=== PATIENT | male | born 1950 | race Two or more races ===

== ENCOUNTER → 2024-01-18 | Outpatient (CLI) | payer MEDICAID | END | disposition home or self-care (01) | LOC: LAB 13:36 | PROVIDERS: ATTEND Family Medicine | DX: Z12.11 Encounter for screening for malignant neoplasm of colon (principal) | CPT/HCPCS: 82270 ==

== ENCOUNTER → 2024-05-17 | Outpatient (CLI) | payer MEDICAID ==
[2024-05-17 08:37] LABS: Urine Blood 1+ /uL (Negative); Urine Clarity Clear (Clear); Urine Color Yellow (Yellow); Urine Protein, UAD Negative (Negative); Urine Specific Gravity 1.023 (1.001-1.035); Urine Urobilinogen Normal (Negative)
[2024-05-17 08:38] LABS: Basophils # (auto) 0.1 10 ^3/uL (0-0.2); Basophils % (auto) 0.8 % (0.0-2.0); Eosinophils # (auto) 0.4 10 ^3/uL (0-0.8); Eosinophils % (auto) 5.3 % (0.0-7.0); Hematocrit 43.7 % (41.0-53.0); Hemoglobin 14.8 g/dL (13.5-17.5); Lymphocytes # (auto) 1.5 10 ^3/uL (0.4-5.4); Lymphocytes % (auto) 21.8 % (10.0-50.0); Mean Corpuscular Hemoglobin 28.7 pg (28.0-32.0); Mean Corpuscular Volume 84.5 fL (80.0-100.0); Monocytes # (auto) 0.5 10 ^3/uL (0-1.3); Neutrophils # (auto) 4.4 10 ^3/uL (1.6-8.6); Neutrophils % (auto) 65.1 % (37.0-80.0); Nucleated Red Blood Cells % 0.1 %; Red Blood Cells 5.17 10^6/uL (4.5-5.90); Red Cell Distribution Width 13.7 % (11.8-14.3); White Blood Cell 6.7 10^3/uL (4.4-10.8)
[2024-05-17 09:13] LABS: Alanine Aminotransferase 18 U/L (7-40); Albumin 4.6 g/dL (3.2-4.8); Alkaline Phosphatase 52 U/L (46-116); Anion Gap 6 (5-15); Aspartate Aminotransferase 11 U/L (13-40); Blood Urea Nitrogen 21 mg/dL (9-23); Calcium 9.9 mg/dL (8.5-10.1); Carbon Dioxide 25 mmol/L (20-30); Chloride 109 mmol/L (98-107); Cholesterol 132 mg/dL (< 200); Glucose 118 mg/dL (74-106); HDL Cholesterol 38 mg/dL (40-59); LDL Cholesterol 80 mg/dL (< 100); Potassium 3.9 mmol/L (3.5-5.1); Sodium 140 mmol/L (136-145); Triglycerides 91 mg/dL (< 150)
[2024-05-17 09:14] LABS: Bilirubin, Total 0.4 mg/dL (0.2-1.0); Total Protein 6.9 g/dL (5.7-8.2)
[2024-05-17 10:19] LABS: Uric Acid 4.8 mg/dL (3.7-9.2)
[2024-05-18 08:06] LABS: PSA Free 1.12 ng/mL; Prostate Specific Antigen 6.2 ng/mL (0.0-4.0)
[2024-05-20 08:44] LABS: Hepatitis B Surface Antigen Negative (Negative)
[2024-05-20 09:04] LABS: Hepatitis A Ab IgM Negative
[2024-05-20 09:05] LABS: Hepatitis B Core IgM Negative
[2024-05-20 09:06] LABS: Hepatitis C Antibody Negative (Negative)
== END | disposition home or self-care (01) ==
LOC: LAB 08:02
PROVIDERS: ATTEND Family Medicine
DX: G47.33 Obstructive sleep apnea (adult) (pediatric) (principal); R97.20 Elevated prostate specific antigen [PSA]; E78.5 Hyperlipidemia, unspecified; R73.03 Prediabetes; D69.3 Immune thrombocytopenic purpura; F12.20 Cannabis dependence, uncomplicated; M81.0 Age-related osteoporosis without current pathological fracture; F13.20 Sedative, hypnotic or anxiolytic dependence, uncomplicated; N40.0 Benign prostatic hyperplasia without lower urinary tract symptoms
CPT/HCPCS: 36415; 80053; 80061; 80074; 81003; 83036; 84153; 84154; 84443; 84550; 85025

== ENCOUNTER → 2024-11-01 | Outpatient (CLI) | payer MEDICAID ==
[2024-11-01 09:30] LABS: Alanine Aminotransferase 16 U/L (7-40); Albumin 4.1 g/dL (3.2-4.8); Alkaline Phosphatase 53 U/L (46-116); Anion Gap 5 (5-15); Aspartate Aminotransferase 17 U/L (13-40); BUN/Creatinine Ratio 15.4 (10.0-20.0); Blood Urea Nitrogen 16 mg/dL (9-23); Calcium 9.7 mg/dL (8.7-10.4); Carbon Dioxide 29 mmol/L (20-31); Chloride 107 mmol/L (98-107); Glucose 104 mg/dL (74-106); LDL Cholesterol 72 mg/dL (< 100); Potassium 4.2 mmol/L (3.5-5.1); Sodium 141 mmol/L (136-145); Triglycerides 69 mg/dL (< 150)
[2024-11-01 09:31] LABS: Bilirubin, Total 0.4 mg/dL (0.2-1.0); Cholesterol 122 mg/dL (< 200); HDL Cholesterol 43 mg/dL (40-59); Total Protein 6.4 g/dL (5.7-8.2)
== END | disposition home or self-care (01) ==
LOC: LAB 08:32
PROVIDERS: ATTEND Nurse Practitioner Family
DX: G25.4 Drug-induced chorea (principal)
CPT/HCPCS: 36415; 80053; 80061; 83036; 84443